=== PATIENT | female | born 1975 | race Caucasian/White ===

== ENCOUNTER 2019-09-05 00:26 | Day surgery (SDC) | payer OTHER, SELFPAY ==
[2019-08-30 13:09] VITALS: BMI 20.3
[2019-09-05] MEDS: LACTATED RINGERS 1,000 ML 150 ML IV CONT (10:20)
[2019-09-05 10:27] VITALS: BP 137/75; PULSE 73; RESP 16; TEMP 36.5; O2SAT 100
--- NOTE | 2019-09-05 11:20 | WPDANESEPPF ---
Anes - Initial Pre Proc Eval Procedure: Operation Date: 09/05/19 11:30 Proposed Procedures p Esophagogastroduodenoscopy - Rubén Catalan MD Date/Time: 09/05/19 11:20 Surgeon: Rubén Catalan MD Pre Op Diagnosis: Dysphagia Patient Data Age: 44 Gender: F Height: 5 ft 7 in Weight: 59 kg Last Vital Signs Temp 97.7 F 09/05/19 10:27 Pulse 73 09/05/19 10:27 Resp 16 09/05/19 10:27 BP 137/75 09/05/19 10:27 Pulse Ox 100 09/05/19 10:27 Allergies Allergy/AdvReac Type Severity Reaction Status Date / Time No Known Allergies Allergy Verified 09/05/19 10:14 Home Medications Medication Instructions Recorded Confirmed Type albuterol sulfate 90 mcg/actuation 1 inhalation INHALATION Q4H PRN 05/22/19 08/30/19 Rx aerosol inhaler #6.7 gm albuterol sulfate 2.5 mg INHALATION Q4-6H PRN #90 ml 05/29/19 08/30/19 Rx omeprazole 40 mg capsule,delayed 40 mg PO DAILY #30 cap 08/13/19 08/30/19 Rx release Patient hx anesthesia problems: none Family hx anesthesia problems: none PMFSH Past Medical History Medical History (Updated 08/13/19 @ 10:50 by rBisa Erazo, [facility]) Essential hypertension Migraine, unspecified, not intractable, with status migrainosus Pneumonia of left lower lobe due to infectious organism Unspecified asthma with (acute) exacerbation Social History Social History Smoking status: Never smoker Alcohol intake: never Anes - Eval Final PreProcedure Day of Procedure 09/05/19 11:20 Patient weight: normal Heart: regular rate and rhythm Lungs: clear to auscultation Airway: Mallampati scale class II Neurological: alert and oriented Last oral intake: >/= 8 hours ASA classification: II Emergent: no Anesthetic plan: proceed Anesthesia type and monitoring: general GIVS and standard monitoring Informed Consent: The patient's anesthetic plan and its attendant risks and benefits were discussed with the patient/family/POA. Questions were solicited and answers provided to the satisfaction of the patient/family/POA.
--- NOTE | 2019-09-05 11:32 | PM.HPGS ---
History of Present Illness History of Present Illness Consent: Risks, benefits, and alternatives have been discussed and questions answered. Patient agrees to proceed with procedure. Chief complaint: Dysphagia Narrative: Demetrio Hua is a 44 year old female who has been having frequent episodes of dysphagia. Solid foods such as meat, sandwiches or rice seem to get caught. When it happens even water will go down. He has had problems with acid reflux and just began taking omeprazole a couple weeks ago. She has had heartburn from time to time and at times she will feel it come up to her throat PMFSH Past Medical History Medical History Essential hypertension Migraine, unspecified, not intractable, with status migrainosus Pneumonia of left lower lobe due to infectious organism Unspecified asthma with (acute) exacerbation Family History Family History Grandparent Hypertension Father Hypertension Social History Social History Smoking status: Never smoker Alcohol intake: never Meds Home Medications and Allergies Home Medications Medication Instructions Recorded Confirmed Type albuterol sulfate 90 mcg/actuation 1 inhalation INHALATION Q4H PRN 05/22/19 08/30/19 Rx aerosol inhaler #6.7 gm albuterol sulfate 2.5 mg INHALATION Q4-6H PRN #90 ml 05/29/19 08/30/19 Rx omeprazole 40 mg capsule,delayed 40 mg PO DAILY #30 cap 08/13/19 08/30/19 Rx release Allergies Allergy/AdvReac Type Severity Reaction Status Date / Time No Known Allergies Allergy Verified 09/05/19 10:14 Vital Signs Vital Signs - 24 hr 09/05/19 10:27 Temperature 36.5 C Pulse Rate 73 Respiratory Rate 16 Blood Pressure 137/75 Pulse Oximetry 100 Exam Const: General: alert Orientation/consciousness: patient oriented x3 Resp: Auscultation: clear to auscultation bilaterally Cardio: Rhythm: regular rhythm GI: GI Palp: Yes Soft to palpation and No Tenderness to palpation present (GI) Neuro: General: patient oriented x3 Assessment and Plan Assessment and plan (1) Dysphagia: Qualifiers: Dysphagia type: esophageal phase Qualified Code(s): R13.10 - Dysphagia, unspecified Code(s): R13.10 - Dysphagia, unspecified Status: Acute Assessment and Plan: EGD with possible biopsy or dilatation or cautery.
[2019-09-05 11:56] VITALS: BP 110/66; PULSE 72; RESP 19; O2SAT 100
[2019-09-05 12:06] VITALS: BP 122/80; PULSE 71; RESP 20; O2SAT 100
[2019-09-05 12:16] VITALS: BP 138/92; PULSE 64; RESP 19; O2SAT 100
== END 2019-09-05 12:30 | disposition home or self-care (01) ==
PROVIDERS: PCP Family Medicine; Visit Provider Internal Medicine Gastroenterology
PROC: 0DJ08ZZ Inspection of Upper Intestinal Tract, Via Natural or Artificial Opening Endoscopic (ICD-10-PCS; CPT 43235; principal; 2019-09-05 11:30)
DX: K22.2 Esophageal obstruction (principal); K21.0 Gastro-esophageal reflux disease with esophagitis; I10 Essential (primary) hypertension; J45.909 Unspecified asthma, uncomplicated
CPT/HCPCS: 43249; 88305; C1726; J2704; J7120

== ENCOUNTER 2022-11-26 06:57 | Outpatient (CLI) | payer BC, SELFPAY ==
[2022-11-26 07:18] LABS: Hematocrit 43.2 % (37.0-47.0); Hemoglobin 14.6 g/dL (12.0-15.0); Mean Corpuscular HGB Conc 33.8 g/dl (32-36); Mean Corpuscular Hemoglobin 30.5 pg (26-34); Mean Corpuscular Volume 90.4 fl (80-100); Mean Platelet Volume 10.8 fl (7.4-10.4); Platelet Count Result 265 k/mm3 (150-375); Red Blood Count 4.78 M/mm3 (4.2-5.4); Red Cell Distribution Width 11.9 % (11.5-14.5)
[2022-11-26 07:29] LABS: Alanine Aminotransferase 15 U/L (6-35); Albumin Level 4.2 g/dL (3.5-5.1); Alkaline Phosphatase 51 U/L (38-126); Anion Gap 3 mmol/L (8-16); Aspartate Amino Transferase 19 U/L (14-36); Bilirubin,Total 1.1 mg/dL (0.2-1.3); Blood Urea Nitrogen 10 mg/dL (7-17); Calcium 9.1 mg/dL (8.4-10.2); Carbon Dioxide 31 mmol/L (22-30); Chloride 104 mmol/L (98-107); Cholesterol 188 mg/dL (0-200); Estimated Glomerular Filt Rate > 60; Glucose 105 mg/dL (65-110); HDL Direct 42 mg/dL; Potassium 4.6 mmol/L (3.4-5.0); Sodium 138 mmol/L (137-145); Triglycerides 114 mg/dL (<150)
[2022-11-26 07:40] LABS: LDL Cholesterol Direct 124 mg/dL
[2022-11-26 08:07] LABS: Erythrocyte Sedimentation Rate 9 mm/hr (0-20)
[2022-12-01 20:54] LABS: ANA Cascade Screen Negative (Negative)
== END 2022-11-26 06:58 | disposition home or self-care (01) ==
LOC: ANHLAB 06:58
PROVIDERS: PCP Family Medicine; Visit Provider Nurse Practitioner Family
DX: Z13.220 Encounter for screening for lipoid disorders (principal); Z83.2 Family history of diseases of the blood and blood-forming organs and certain disorders involving the immune mechanism; Z13.29 Encounter for screening for other suspected endocrine disorder; Z13.1 Encounter for screening for diabetes mellitus
CPT/HCPCS: 36415; 80053; 80061; 84443; 85027; 85652; 86038

== ENCOUNTER 2023-03-09 14:10 | Outpatient (CLI) | payer BC, SELFPAY ==
--- NOTE | ~2023-03-09 | XR_ITS ---
Clinical Indication: Shortness of breath PA and lateral views of the chest: Comparison: 07/29/2017 Findings: The lungs are clear, without evidence of focal consolidation or pleural effusion. Cardiome diastinal silhouette is within normal limits. Bones and soft tissues are unremarkable. Impression: Normal chest. Reviewed, dictated and finalized at [facility]. Impression: Normal chest.
[2023-03-09 14:58] LABS: Basophils Absolute Auto 0.1 K/mm3 (0.0-0.1); Basophils Percent Auto 0.5 % (0.2-1.2); Eosinophils Absolute Auto 0.7 K/mm3 (0-0.3); Eosinophils Percent Auto 6.1 % (0-4.4); Hematocrit 44.2 % (37.0-47.0); Hemoglobin 14.7 g/dL (12.0-15.0); Immature Granulocyte Absolute 0.03 K/mm3 (0.00-0.031); Immature Granulocyte Percent A 0.3 % (0-0.5); Lymphocytes Absolute Auto 3.34 K/mm3 (0.9-3.2); Mean Corpuscular HGB Conc 33.3 g/dl (32-36); Mean Corpuscular Hemoglobin 30.5 pg (26-34); Mean Corpuscular Volume 91.7 fl (80-100); Mean Platelet Volume 10.9 fl (7.4-10.4); Monocytes Absolute Auto 0.7 K/mm3 (0.1-0.6); Monocytes Percent Auto 6.2 % (2.6-8.5); Neutrophils Percent Auto 58.9 % (45.5-73.1); Platelet Count Result 292 k/mm3 (150-375); Red Blood Count 4.82 M/mm3 (4.2-5.4); Red Cell Distribution Width 12.1 % (11.5-14.5); White Blood Count 11.9 K/mm3 (4.5-10.0)
[2023-03-09 15:16] LABS: Anion Gap 9 mmol/L (8-16); Blood Urea Nitrogen 8 mg/dL (7-17); Calcium 8.9 mg/dL (8.4-10.2); Carbon Dioxide 26 mmol/L (22-30); Chloride 103 mmol/L (98-107); Estimated Glomerular Filt Rate > 60; Glucose 115 mg/dL (65-110); Potassium 4.2 mmol/L (3.4-5.0); Sodium 138 mmol/L (137-145)
== END 2023-03-09 14:11 | disposition home or self-care (01) ==
LOC: ANHLAB 14:12
PROVIDERS: PCP Family Medicine; Visit Provider Nurse Practitioner Family
DX: T63.511A Toxic effect of contact with stingray, accidental (unintentional), initial encounter (principal); L97.512 Non-pressure chronic ulcer of other part of right foot with fat layer exposed; R06.02 Shortness of breath
CPT/HCPCS: 36415; 71046; 80048; 85025

== ENCOUNTER 2023-03-10 08:40 | Outpatient (RCR) | payer BC, SELFPAY ==
[2023-03-10 09:28] VITALS: BMI 22.7
== END 2023-04-07 13:44 | disposition home or self-care (01) ==
LOC: ANHWOC 08:40
PROVIDERS: PCP Family Medicine; Visit Provider Family Medicine
DX: L97.512 Non-pressure chronic ulcer of other part of right foot with fat layer exposed (principal)
CPT/HCPCS: 99213; G0463

== ENCOUNTER → 2023-03-12 07:41 | Outpatient (CLI) | payer BC, SELFPAY ==
--- NOTE | ~2023-03-12 | MM_ITS ---
EXAMINATION: MM screening natalie BI w new HISTORY: Screening mammogram TECHNIQUE: Craniocaudal and mediolateral oblique 3-D tomosynthesis images were obtained and synthetic 2-D images were generated. CAD analysis was submitted and interpreted. COMPARISON: No prior mammogram is available for comparison at this institution. BREAST PARENCHYMAL COMPOSITION: The breasts are heterogeneously dense, which may obscure small masses . FINDINGS: There is no evidence of suspicious mass, calcification, or architectural distortion to sugg est malignancy in either breast. IMPRESSION: 1. No mammographic evidence of malignancy. 2. Recommend routine screening mammography in one year. BI-RADS Category 1: Negative Reviewed, dictated and finalized at location A.
== END ==
PROVIDERS: PCP Family Medicine; Visit Provider Nurse Practitioner Family
DX: Z12.31 Encounter for screening mammogram for malignant neoplasm of breast (principal)
CPT/HCPCS: 77063; 77067

== ENCOUNTER 2023-03-14 07:10 | Outpatient (CLI) | payer BC, SELFPAY | END 2023-03-14 07:11 | disposition home or self-care (01) | PROVIDERS: PCP Family Medicine; Visit Provider Nurse Practitioner Family | DX: T63.511A Toxic effect of contact with stingray, accidental (unintentional), initial encounter (principal) | CPT/HCPCS: 87040 ==

== ENCOUNTER 2023-03-16 10:27 | Outpatient (CLI) | payer BC, SELFPAY ==
--- NOTE | ~2023-03-16 | MR_ITS ---
EXAMINATION: MR foot RT wo/w con DATE: 03/16/2023 11:17 INDICATION: Right foot pain and swelling. Stung by stingray. TECHNIQUE: Magnetic resonance imaging (MRI) of the right foot was performed without and with 13 mL Mu ltiHance intravenous contrast. COMPARISON: None FINDINGS: Bone alignment is normal. No fracture. 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 Lisfranc ligament is normal. There are longitudinal split fractures of radius brevis and peroneu s longus tendons. The plantar fascia is normal. There is a skin marker plantar to the midfoot. There is edema in flexor digitorum brevis and quadratus plantae muscles. There is subcutaneous edema planta r to head of fifth metatarsal. IMPRESSION: 1. Edema in the plantar musculature of the foot (flexor digitorum brevis and quadratus plantae muscle s), consistent with myositis. No abscess. Reviewed, dictated and finalized at location A. IMPRESSION: 1. Edema in the plantar musculature of the foot (flexor digitorum brevis and qu adratus plantae muscles), consistent with myositis. No abscess.
== END 2023-03-16 10:28 ==
PROVIDERS: PCP Family Medicine; Visit Provider Podiatrist Foot & Ankle Surgery
DX: M79.89 Other specified soft tissue disorders (principal)
CPT/HCPCS: 73720; A9577

== ENCOUNTER 2024-04-21 07:28 | Outpatient (CLI) | payer BC, SELFPAY ==
[2024-04-21 08:28] LABS: Basophils Absolute Auto 0.1 K/mm3 (0.0-0.1); Basophils Percent Auto 0.9 % (0.2-1.2); Eosinophils Absolute Auto 0.8 K/mm3 (0-0.3); Hematocrit 43.9 % (37.0-47.0); Hemoglobin 14.7 g/dL (12.0-15.0); Immature Granulocyte Absolute 0.02 K/mm3 (0.00-0.031); Immature Granulocyte Percent A 0.2 % (0-0.5); Lymphocytes Absolute Auto 2.62 K/mm3 (0.9-3.2); Lymphocytes Percent Auto 28.1 % (18.3-44.2); Mean Corpuscular HGB Conc 33.5 g/dl (32-36); Mean Corpuscular Hemoglobin 30.5 pg (26-34); Mean Corpuscular Volume 91.1 fl (80-100); Mean Platelet Volume 11.1 fl (7.4-10.4); Monocytes Absolute Auto 0.5 K/mm3 (0.1-0.6); Monocytes Percent Auto 5.7 % (2.6-8.5); Neutrophils Absolute Auto 5.3 K/mm3 (1.3-6.7); Neutrophils Percent Auto 57.1 % (45.5-73.1); Platelet Count Result 302 k/mm3 (150-375); Red Blood Count 4.82 M/mm3 (4.2-5.4); Red Cell Distribution Width 11.4 % (11.5-14.5); White Blood Count 9.3 K/mm3 (4.5-10.0)
[2024-04-21 08:38] LABS: Alanine Aminotransferase 12 U/L (6-35); Albumin Level 3.9 g/dL (3.5-5.1); Alkaline Phosphatase 62 U/L (38-126); Anion Gap 2 mmol/L (4-12); Aspartate Amino Transferase 19 U/L (14-36); Bilirubin,Total 0.5 mg/dL (0.2-1.3); Blood Urea Nitrogen 10 mg/dL (7-17); Carbon Dioxide 31 mmol/L (22-30); Chloride 104 mmol/L (98-107); Cholesterol 177 mg/dL (0-200); Estimated Glomerular Filt Rate > 60; Glucose 93 mg/dL (65-110); HDL Direct 41 mg/dL; Potassium 4.5 mmol/L (3.4-5.0); Sodium 137 mmol/L (137-145); Triglycerides 208 mg/dL (<150)
[2024-04-21 08:48] LABS: LDL Cholesterol Direct 93 mg/dL
== END 2024-04-21 07:29 | disposition home or self-care (01) ==
LOC: ANHLAB 07:30
PROVIDERS: PCP Family Medicine; Visit Provider Nurse Practitioner Adult Health
DX: Z00.00 Encounter for general adult medical examination without abnormal findings (principal); I10 Essential (primary) hypertension; Z13.220 Encounter for screening for lipoid disorders; Z13.29 Encounter for screening for other suspected endocrine disorder
CPT/HCPCS: 36415; 80053; 80061; 84443; 85025

== ENCOUNTER 2024-06-11 10:43 | Outpatient (CLI) | payer BC, SELFPAY ==
--- NOTE | ~2024-06-11 | MM_ITS ---
EXAMINATION: MM screening natalie BI w new HISTORY: Screening TECHNIQUE: Craniocaudal and mediolateral oblique 3-D tomosynthesis images were obtained and synthetic 2-D images were generated. CAD analysis was submitted and interpreted. COMPARISON: 03/12/2023 BREAST PARENCHYMAL COMPOSITION: Dense: The breasts are heterogeneously dense, which may obscure small masses FINDINGS: There is no evidence of suspicious mass, calcification, or architectural distortion to sugg est malignancy in either breast. There has been no suspicious interval change. IMPRESSION: 1. No mammographic evidence of malignancy. 2. Recommend routine screening mammography in one year. BI-RADS Category 1: Negative Reviewed, dictated and finalized at location B. S MANAGER
== END 2024-06-11 10:44 | disposition home or self-care (01) ==
LOC: MICIMG 10:44
PROVIDERS: PCP Obstetrics & Gynecology Gynecology; Visit Provider Obstetrics & Gynecology Gynecology
DX: Z12.31 Encounter for screening mammogram for malignant neoplasm of breast (principal)
CPT/HCPCS: 77063; 77067

== ENCOUNTER 2024-10-23 16:33 | Outpatient (CLI) | payer OTHER, SELFPAY ==
[2024-10-23 16:54] LABS: Basophils Absolute Auto 0.1 K/mm3 (0.0-0.1); Basophils Percent Auto 0.6 % (0.2-1.2); Eosinophils Absolute Auto 0.8 K/mm3 (0-0.3); Eosinophils Percent Auto 6.2 % (0-4.4); Hematocrit 42.2 % (37.0-47.0); Immature Granulocyte Absolute 0.03 K/mm3 (0.00-0.031); Immature Granulocyte Percent A 0.2 % (0-0.5); Lymphocytes Absolute Auto 3.88 K/mm3 (0.9-3.2); Mean Corpuscular HGB Conc 33.2 g/dl (32-36); Mean Corpuscular Hemoglobin 29.5 pg (26-34); Mean Corpuscular Volume 88.8 fl (80-100); Monocytes Absolute Auto 0.7 K/mm3 (0.1-0.6); Monocytes Percent Auto 5.4 % (2.6-8.5); Neutrophils Absolute Auto 7.1 K/mm3 (1.3-6.7); Neutrophils Percent Auto 56.6 % (45.5-73.1); Platelet Count Result 311 k/mm3 (150-375); Red Blood Count 4.75 M/mm3 (4.2-5.4); Red Cell Distribution Width 11.6 % (11.5-14.5); White Blood Count 12.5 K/mm3 (4.5-10.0)
[2024-10-23 17:07] LABS: Alanine Aminotransferase 13 U/L (6-35); Albumin Level 4.3 g/dL (3.5-5.1); Alkaline Phosphatase 50 U/L (38-126); Anion Gap 13 mmol/L (4-12); Aspartate Amino Transferase 17 U/L (14-36); Bilirubin,Total 0.3 mg/dL (0.2-1.3); Blood Urea Nitrogen 12 mg/dL (7-17); Carbon Dioxide 23 mmol/L (22-30); Chloride 102 mmol/L (98-107); Estimated Glomerular Filt Rate > 60; Glucose 119 mg/dL (65-110); Potassium 3.8 mmol/L (3.4-5.0); Sodium 138 mmol/L (137-145)
[2024-10-23 17:25] LABS: Vitamin D 25 Hydroxy 49.3 ng/mL
[2024-10-24 19:18] LABS: FSH 3.1 mIU/mL
[2024-10-25 05:08] LABS: Insulin Level Total 41.1 uIU/mL
[2024-10-27 00:29] LABS: Testosterone Total 24 ng/dL (2-45)
== END 2024-10-23 16:34 | disposition home or self-care (01) ==
LOC: ANHLAB 16:37
PROVIDERS: PCP Family Medicine; Visit Provider Nurse Practitioner Family
DX: Z00.00 Encounter for general adult medical examination without abnormal findings (principal); R23.2 Flushing; F41.1 Generalized anxiety disorder; F43.0 Acute stress reaction; I10 Essential (primary) hypertension
CPT/HCPCS: 36415; 80053; 82306; 82672; 83001; 83002; 83525; 84403; 84443; 85025

== ENCOUNTER 2024-10-24 12:57 | Emergency (ER) | payer OTHER, SELFPAY ==
--- NOTE | ~2024-10-24 | XR_ITS ---
EXAMINATION: XR chest 2V DATE: 10/24/2024 15:36 INDICATION: Chest pain, right arm pain and hypertension TECHNIQUE: PA and lateral views of the chest were obtained. COMPARISON: Chest radiograph dated 03/09/23 FINDINGS: Mild biapical pleural-parenchymal scarring. No other airspace opacities, pulmonary edema, pleural eff usion or pneumothorax. The cardiomediastinal silhouette is normal. Visualized bones and soft tissues are unremarkable. IMPRESSION: 1. No acute cardiopulmonary disease. Reviewed, dictated and finalized at location A.
[2024-10-24 13:31] VITALS: BP 153/86; PULSE 104; RESP 16; TEMP 37; O2SAT 98
[2024-10-24 14:17] VITALS: RESP 14; O2SAT 99
--- OUTSIDE RECORDS SUMMARY | 2024-10-24 14:27 | XMS_ITS | Clinical Summary ---
Author Organization [facility] Address [address] [place] [address] Care Team Providers Care Manager Talent Acquisition Name Role Phone Unavailable Primary Care Provider Unavailabl e Social History Tobacco Use Types Packs/Day Years Used Date Smoking Tobacco: Never Assessed Comments Unknown Sex and Gender Information Value Date Recorded Sex Assigned at Not on file Legal Sex Female 5:31 PM CDT Gender Identity Not on file Sexual Orientation Not on file Last Filed Vital Signs Vital Sign Reading Time Taken Comments Blood Pressure 110/68 07/15/2012 1:16 PM GLOBAL SALES EXECUTIVE Pulse 88 07/15/2012 1:16 PM GLOBAL SALES EXECUTIVE Temperature - - Respiratory Rate - - Oxygen Saturation - - Inhaled Oxygen Concentration - - Weight 54.4 kg (120 lb) 07/15/2012 1:16 PM GLOBAL SALES EXECUTIVE Height - - Body Mass Index - - Plan of Treatment Health Maintenance Due Date Last Done Comments Cervical Cancer Screening Pa p Smear (Age 30 to 64) Every 3 Years 1977 Colorectal Cancer Screening Colonoscopy (10 Years) 1977 Annual Physical 1980 Hepatitis C 1995 Hepatitis B Vaccines (1 of 3 - 19+ 3-dose series) 1996 Cervical Cancer Screening Pa p with HPV Testing (Age 30 to 64) Every 5 Years 2007 Cervical Cancer Screening with HPV 2007 Mammogram Screening 2017 DTaP, Tdap and Td Vaccines ( 2 - Td or Tdap) 07/15/2022 07/15/2012 COVID-19 Vaccine (2023-2 5 season) 2024 Meningococcal B Vaccine Aged Out No l onger eligible based on patient's age to complete this topic Meningococcal Vaccine Aged Out No louann cricket eligible based on patient's age to complete this topic Pneumococcal Vaccine: Pediat rics (0 to 5 Years) and At-Risk Patients (6 to 49 Years) Aged Out No longer eligi ble based on patient's age to complete this topic RSV Immunizations Under 20 Months Aged Out No longer eligible based on patient's age to complete this topic
--- OUTSIDE RECORDS SUMMARY | 2024-10-24 14:27 | XMS_ITS | Encounter Summary ---
Author Organization [facility] Address [address] [place] [address] Care Team Providers Care Cooler Servicer Name Role Phone Unavailable Primary Care Provider Unavailabl e Encounter Details Date Type Department Care Team (Late st Contact Info) Description 12/09/2018 Abstract [facility] CONVERSION [id number] [place], [place] [id number] , Generic Conversion, Social History Tobacco Use Types Packs/Day Years Used Date Smoking Tobacco: Never Assessed Comments Unknown Sex and Gender Information Value Date Recorded Sex Assigned at Not on file Legal Sex Female 5:31 PM CDT Gender Identity Not on file Sexual Orientation Not on file documented as of this encounter Plan of Treatment Not on file documented as of this encounter Visit Diagnoses Not on filedocumented in this encounter
--- NOTE | 2024-10-24 15:07 | ECG_ITS ---
Test Date: 2024-10-24 15:19:07 Measurements Intervals [place] Rate: 89 P: 11 [place]: 97 QRS: 33 QRSD: 81 T: 44 QT: 377 QTc: 459 Interpretive Statements SINUS RHYTHM WITH SHORT [place] INTERVAL BORDERLINE ECG No previous ECG available for comparison Electronically Signed On 10-24-2024 15:38:32 CDT by Azeem Schaeffer D.O.
[2024-10-24 15:13] VITALS: BP 135/77; PULSE 83; RESP 17; O2SAT 97
--- NOTE | 2024-10-24 15:21 | ED.RECABL ---
HPI - Recheck/Abnormal Lab/Rx General Chief Complaint: Recheck/Abnormal Lab/Rx Stated Complaint: cardiac work up Time Seen by Provider: 10/24/24 14:20 Source: patient Mode of arrival: ambulatory Limitations: no limitations History of Present Illness HPI narrative: This is a 49-year-old female that presents to the emergency department for elevated blood pressure. Reports she has been having elevated blood pressure readings, chest discomfort, shoulder pain. She was seen by her PCP for this yesterday. Restarted on her blood pressure medication. She is found to be seen in the ER today for further evaluation of her heart. Denies fever, cough, shortness of breath, lower extremity edema. Related Data Home Medications ?Medication ?Instructions ?Recorded ?Confirmed ?Last Taken ?Type norelgestromin 150 mcg-e.estradiol patch topical WEEKLY 10/13/23 10/23/24 Unknown History 35 mcg/24 hr weekly transderm patch (Xulane) Allergies Allergy/AdvReac Type Severity Reaction Status Date / Time clindamycin AdvReac Severe Diarrhea Verified 10/24/24 13:00 Review of Systems Review of Systems: CONSTITUTIONAL: Denies fever CARDIOVASCULAR: Reports chest pain. Denies palpitations, or edema. RESPIRATORY: Denies cough or dyspnea. All systems reviewed & are unremarkable except as noted in HPI and below PMFSH Past Medical History Medical History Screening for thyroid disorder Ulcer of foot Toxic effect of stingray venom Screen for colon cancer Screening for thyroid disorder Screening for diabetes mellitus Family history of autoimmune disorder Family history of lupus Essential hypertension Migraine, unspecified, not intractable, with status migrainosus Pneumonia of left lower lobe due to infectious organism Unspecified asthma with (acute) exacerbation Family History Family History Grandparent Hypertension Father Hypertension Acute myocardial infarction Heart disease Mother Hyperlipidemia Hypertension Sibling Hypertension Social History Social History Smoking status: Former smoker Second hand tobacco smoke exposure: No Alcohol intake: current Substance use: never Substance use type: does not use Do You Feel Safe in your Home?: Yes Lack of Transportation: No Lack of Food: Never True Current Housing: I Have Housing Concerned About Future Housing: No Difficulty Paying Gas/Electric Bills: No Difficulty Paying for Meds: No Currently Unemployed: No Education: Associate Degree Difficulty w/ Childcare or Family Care: No Living arrangements: with family Occupation/Education: occupation 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 Gender identity (if verbalized by the patient): Female Exam Narrative: GENERAL: Well-appearing, well-nourished, and in no acute distress. HEAD: Normocephalic, atraumatic. EYES: EOMI. ENT: Nares clear, no rhinorrhea or epistaxis. Mucous membranes moist. Oropharynx without tonsillar hypertrophy exudate or other lesions. CHEST: Clear to auscultation. No respiratory distress. No wheezes rales or rhonchi HEART: Regular rate and rhythm. No murmur heard. Normal peripheral pulses. EXTREMITIES: Normal range of motion. No edema. SKIN: Warm, dry, no rash. NEURO: No focal deficits. Alert and oriented x3. PSYCH: Normal mood and affect Course Course Emergency Course: Patient updated on her workup and agrees with plan of care Vital Signs Vital signs: Vital Signs Temperature 98.6 F 10/24/24 13:31 Pulse Rate 104 H 10/24/24 13:31 Respiratory Rate 16 10/24/24 13:31 Blood Pressure 153/86 H 10/24/24 13:31 Pulse Oximetry 98 10/24/24 13:31 Temperature 98.6 F 10/24/24 13:31 Pulse Rate 82 10/24/24 17:33 Respiratory Rate 18 10/24/24 17:33 Blood Pressure 130/70 10/24/24 17:33 Pulse Oximetry 99 10/24/24 17:33 MDM - Recheck/Abnormal Lab/Rx MDM Narrative Medical decision making narrative: Patient presents the emergency department with elevated blood pressures, chest/shoulder discomfort. Tachycardic and hypertensive upon arrival, this normalized without intervention. CBC with leukocytosis to 14.1. Patient is afebrile without any localizing infectious symptoms. Metabolic panel without concerning findings. EKG without concerning changes and baseline troponin is negative. Chest x-ray without acute cardiopulmonary abnormality. D-dimer is not elevated. Patient updated on her workup and agrees with plan of care. Instructed to have continued follow-up with her primary provider. She was given warnings to return to the ER Differential Diagnosis Differential diagnosis: Likely other (Hypertension, chest pain, costochondritis, muscle spasm, muscle strain, pneumonia, PE) Lab Data Attestation: I reviewed the patient's lab results. 10/24/24 15:45 10/24/24 15:45 Labs: Lab Results 10/24/24 10/24/24 10/24/24 Range/Units 15:44 15:44 15:44 WBC (4.5-10.0) K/mm3 RBC (4.2-5.4) M/mm3 Hgb (12.0-15.0) g/dL Hct (37.0-47.0) % MCV (80-100) fl MCH (26-34) pg MCHC (32-36) g/dl RDW (11.5-14.5) % Plt Count (150-375) k/mm3 MPV (7.4-10.4) fl Immature Gran % (Auto) (0-0.5) % Neut % (Auto) (45.5-73.1) % Lymph % (Auto) (18.3-44.2) % [place] % (Auto) (2.6-8.5) % Eos % (Auto) (0-4.4) % Baso % (Auto) (0.2-1.2) % Lymph # (Auto) (0.9-3.2) K/mm3 [place] # (Auto) (0.1-0.6) K/mm3 Eos # (Auto) (0-0.3) K/mm3 Baso # (Auto) (0.0-0.1) K/mm3 Abs Immat Gran (auto) (0.00-0.031) K/mm3 Absolute Neuts (auto) (1.3-6.7) K/mm3 Absolute Nucleated RBC (0.0-0.012) K/mm3 Nucleated RBC % (0.0-0.2) % PT Cancelled 12.8 INR Cancelled 0.9 APTT Cancelled D-Dimer (<0.48) ug/mL Sodium (137-145) mmol/L Potassium (3.4-5.0) mmol/L Chloride (98-107) mmol/L Carbon Dioxide (22-30) mmol/L Anion Gap (4-12) mmol/L BUN (7-17) mg/dL Creatinine (0.7-1.0) mg/dL Estim Creat Clear Calc ml/min Estimated GFR (59 - ) Glucose (65-110) mg/dL Calcium (8.4-10.2) mg/dL Total Bilirubin (0.2-1.3) mg/dL AST (14-36) U/L ALT (6-35) U/L Alkaline Phosphatase (38-126) U/L Troponin I (0.000-0.034) ng/mL Total Protein (6.3-8.2) g/dL Albumin (3.5-5.1) g/dL Lipase (23-300) U/L 10/24/24 10/24/24 Range/Units 15:44 15:45 WBC 14.1 H (4.5-10.0) K/mm3 RBC 4.71 (4.2-5.4) M/mm3 Hgb 14.1 (12.0-15.0) g/dL Hct 42.5 (37.0-47.0) % MCV 90.2 (80-100) fl MCH 29.9 (26-34) pg MCHC 33.2 (32-36) g/dl RDW 11.6 (11.5-14.5) % Plt Count 295 (150-375) k/mm3 MPV 10.9 H (7.4-10.4) fl Immature Gran % (Auto) 0.3 (0-0.5) % Neut % (Auto) 74.0 H (45.5-73.1) % Lymph % (Auto) 19.1 (18.3-44.2) % [place] % (Auto) 4.0 (2.6-8.5) % Eos % (Auto) 2.2 (0-4.4) % Baso % (Auto) 0.4 (0.2-1.2) % Lymph # (Auto) 2.70 (0.9-3.2) K/mm3 [place] # (Auto) 0.6 (0.1-0.6) K/mm3 Eos # (Auto) 0.3 (0-0.3) K/mm3 Baso # (Auto) 0.1 (0.0-0.1) K/mm3 Abs Immat Gran (auto) 0.04 H (0.00-0.031) K/mm3 Absolute Neuts (auto) 10.4 H (1.3-6.7) K/mm3 Absolute Nucleated RBC 0.000 (0.0-0.012) K/mm3 Nucleated RBC % 0.0 (0.0-0.2) % PT INR APTT 27.2 D-Dimer 0.36 (<0.48) ug/mL Sodium 139 (137-145) mmol/L Potassium 3.9 (3.4-5.0) mmol/L Chloride 103 (98-107) mmol/L Carbon Dioxide 25 (22-30) mmol/L Anion Gap 11 (4-12) mmol/L BUN 8 (7-17) mg/dL Creatinine 0.69 L (0.7-1.0) mg/dL Estim Creat Clear Calc 84 ml/min Estimated GFR > 60 (59 - ) Glucose 102 (65-110) mg/dL Calcium 8.6 (8.4-10.2) mg/dL Total Bilirubin 0.6 (0.2-1.3) mg/dL AST 21 (14-36) U/L ALT 14 (6-35) U/L Alkaline Phosphatase 65 (38-126) U/L Troponin I < 0.012 (0.000-0.034) ng/mL Total Protein 8.0 (6.3-8.2) g/dL Albumin 4.3 (3.5-5.1) g/dL Lipase 73 (23-300) U/L Imaging Data Radiologist's impression: ITS Impressions Chest X-Ray 10/24/24 15:37 IMPRESSION: 1. No acute cardiopulmonary disease. ECG Data EKG #1: ECG completion date: 10/24/24 EKG Interpretation: normal rate, sinus rhythm, no ST changes and normal QT Critical Care Time Critical Care Time Critical Care Time: No Discharge Plan Discharge Clinical Impression: Hypertension Qualifiers: Hypertension type: unspecified Qualified Code(s): I10 - Essential (primary) hypertension Leukocytosis Qualifiers: Leukocytosis type: unspecified Qualified Code(s): D72.829 - Elevated white blood cell count, unspecified Patient Disposition: Home Condition: Stable Instructions: Hypertension (ED) Additional Instructions: Return to the emergency department if you experience fever, chest pain, shortness of breath, abdominal pain with nausea and vomiting, weakness, numbness, or any other symptoms that are concerning to you. Your blood work, EKG and imaging are largely reassuring today. Your white blood cell count is elevated, I do not have an explanation for this. This will need to be rechecked to make sure it is normalizing Follow up with your primary care doctor Patient Language: Czech Prescriptions: No Action olmesartan 20 mg tablet 20 mg PO DAILY Qty: 90 0RF albuterol sulfate 2.5 mg /3 mL (0.083 %) solution for nebulization 2.5 mg INHALATION Q4-6H PRN (Reason: shortness of breath or wheezing) Qty: 90 3RF omeprazole 40 mg capsule,delayed release(DR/EC) 40 mg PO DAILY Qty: 90 3RF norelgestromin-ethin.estradiol [Xulane] 150-35 mcg/24 hr patch weekly topical WEEKLY albuterol sulfate 90 mcg/actuation HFA aerosol inhaler 1 inh INHALATION Q4H PRN (Reason: shortness of breath or wheezing) Qty: 25.5 4RF Rx Instructions: 3 month suppley sertraline [Zoloft] 25 mg tablet 25 mg PO DAILY Qty: 90 0RF Follow-up/Referrals: Samuel Bonner MD [Primary Care Provider] - Quality HEART score for chest pain patients History: slightly suspicious ECG: normal Age: > 45 and < 65 years Risk factors: 1 or 2 risk factors Troponin: < or = to 1x normal limit Heart score: 2
[2024-10-24 15:51] LABS: Basophils Absolute Auto 0.1 K/mm3 (0.0-0.1); Basophils Percent Auto 0.4 % (0.2-1.2); Eosinophils Absolute Auto 0.3 K/mm3 (0-0.3); Eosinophils Percent Auto 2.2 % (0-4.4); Hematocrit 42.5 % (37.0-47.0); Hemoglobin 14.1 g/dL (12.0-15.0); Immature Granulocyte Absolute 0.04 K/mm3 (0.00-0.031); Immature Granulocyte Percent A 0.3 % (0-0.5); Lymphocytes Percent Auto 19.1 % (18.3-44.2); Mean Corpuscular HGB Conc 33.2 g/dl (32-36); Mean Corpuscular Hemoglobin 29.9 pg (26-34); Mean Corpuscular Volume 90.2 fl (80-100); Mean Platelet Volume 10.9 fl (7.4-10.4); Monocytes Absolute Auto 0.6 K/mm3 (0.1-0.6); Neutrophils Absolute Auto 10.4 K/mm3 (1.3-6.7); Platelet Count Result 295 k/mm3 (150-375); Red Blood Count 4.71 M/mm3 (4.2-5.4); Red Cell Distribution Width 11.6 % (11.5-14.5); White Blood Count 14.1 K/mm3 (4.5-10.0)
[2024-10-24 16:03] LABS: Alanine Aminotransferase 14 U/L (6-35); Albumin Level 4.3 g/dL (3.5-5.1); Alkaline Phosphatase 65 U/L (38-126); Anion Gap 11 mmol/L (4-12); Aspartate Amino Transferase 21 U/L (14-36); Bilirubin,Total 0.6 mg/dL (0.2-1.3); Blood Urea Nitrogen 8 mg/dL (7-17); Calcium 8.6 mg/dL (8.4-10.2); Carbon Dioxide 25 mmol/L (22-30); Chloride 103 mmol/L (98-107); Estimated CRCL calculation 84 ml/min; Estimated Glomerular Filt Rate > 60; Glucose 102 mg/dL (65-110); Lipase 73 U/L (23-300); Potassium 3.9 mmol/L (3.4-5.0); Sodium 139 mmol/L (137-145)
[2024-10-24 16:03] LABS: INR 0.9; Prothrombin Time 12.8 Seconds (11.1-14.7)
[2024-10-24 16:04] LABS: Partial Thromboplastin Time 27.2 Seconds (22.3-36.8)
[2024-10-24 16:09] LABS: D Dimer 0.36 ug/mL (<0.48)
[2024-10-24 16:15] LABS: Troponin I < 0.012 ng/mL (0.000-0.034)
[2024-10-24 16:20] VITALS: BP 136/72; PULSE 94; RESP 18; O2SAT 99
--- OUTSIDE RECORDS SUMMARY | 2024-10-24 16:41 | XMS_ITS | Encounter Summary ---
Author Organization [facility] Address [address] [place] [address] Care Team Providers Care Supervisor Assembly Name Role Phone Unavailable Primary Care Provider Unavailabl e Encounter Details Date Type Department Care Team (Late st Contact Info) Description 12/09/2018 Abstract [facility] CONVERSION [id number] [address] [place], [place] [id number] , Generic Conversion, Social History Tobacco Use [...]
--- OUTSIDE RECORDS SUMMARY | 2024-10-24 16:41 | XMS_ITS | Clinical Summary ---
Author Organization [facility] Address [address] [place] [address] Care Team Providers Care Display Mechanic Name Role Phone Unavailable Primary Care Provider [...] Comments Blood Pressure 110/68 07/15/2012 1:16 PM WELDER EXPERIMENTAL Pulse 88 07/15/2012 1:16 PM WELDER EXPERIMENTAL Temperature - - Respiratory Rate - - Oxygen Saturation - - Inhaled Oxygen Concentration - - Weight 54.4 kg (120 lb) 07/15/2012 1:16 PM WELDER EXPERIMENTAL Height - - Body Mass Index - [...]
[2024-10-24 17:33] VITALS: BP 130/70; PULSE 82; RESP 18; O2SAT 99
[2024-10-24 18:06] VITALS: BP 132/74; PULSE 83; RESP 18; O2SAT 98
== END 2024-10-24 18:14 | disposition home or self-care (01) ==
PROVIDERS: Emergency Provider Physician Assistant; PCP Family Medicine
DX: D72.829 Elevated white blood cell count, unspecified (principal); I10 Essential (primary) hypertension; J45.909 Unspecified asthma, uncomplicated
CPT/HCPCS: 36415; 71046; 80053; 83690; 84484; 85025; 85380; 85610; 85730; 93005; 99284

== ENCOUNTER 2024-11-13 15:05 | Outpatient (CLI) | payer OTHER, SELFPAY ==
--- OUTSIDE RECORDS SUMMARY | 2024-11-13 15:09 | XMS_ITS | Clinical Summary ---
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
[2024-11-13 16:01] LABS: Basophils Absolute Auto 0.1 K/mm3 (0.0-0.1); Basophils Percent Auto 0.5 % (0.2-1.2); Eosinophils Absolute Auto 0.3 K/mm3 (0-0.3); Hemoglobin 13.5 g/dL (12.0-15.0); Immature Granulocyte Absolute 0.03 K/mm3 (0.00-0.031); Immature Granulocyte Percent A 0.3 % (0-0.5); Lymphocytes Percent Auto 32.9 % (18.3-44.2); Mean Corpuscular HGB Conc 32.9 g/dl (32-36); Mean Corpuscular Hemoglobin 29.5 pg (26-34); Mean Corpuscular Volume 89.7 fl (80-100); Mean Platelet Volume 11.3 fl (7.4-10.4); Monocytes Absolute Auto 0.6 K/mm3 (0.1-0.6); Monocytes Percent Auto 5.2 % (2.6-8.5); Neutrophils Absolute Auto 6.5 K/mm3 (1.3-6.7); Neutrophils Percent Auto 58.1 % (45.5-73.1); Platelet Count Result 324 k/mm3 (150-375); Red Blood Count 4.57 M/mm3 (4.2-5.4); Red Cell Distribution Width 11.5 % (11.5-14.5); White Blood Count 11.3 K/mm3 (4.5-10.0)
== END 2024-11-13 15:06 | disposition home or self-care (01) ==
LOC: ANHLAB 15:06
PROVIDERS: PCP Family Medicine; Visit Provider Nurse Practitioner Family
DX: D72.829 Elevated white blood cell count, unspecified (principal)
CPT/HCPCS: 36415; 85025

== ENCOUNTER 2025-01-15 13:41 | Outpatient (CLI) | payer OTHER, SELFPAY ==
--- NOTE | ~2025-01-15 | CT_ITS ---
CT of the Abdomen and Pelvis: Indication: Hematuria Technique: 2.5 mm axial scans were obtained through the abdomen and pelvis prior to and following in travenous administration of 130 cc of Omnipaque 350. Dose reduction technique was used on this scan b y utilizing automated exposure control and iterative reconstruction technique. The dose-length produc t (DLP) was 1189.65 mGy-cm. Findings: Scans through the lung bases are unremarkable. The liver, spleen, pancreas, gallbladder, and adrenal glands are within normal limits. 2 mm nonobstru cting left renal stone present. 5 mm nonobstructing right renal stone present with additional punctat e right renal stones. No hydronephrosis on either side. No evidence of aortic aneurysm. No lymphaden opathy. No bowel obstruction or bowel wall thickening. There is no evidence to suggest acute appendicitis. Images through the pelvis were performed. Urinary bladder unremarkable. No pelvic mass evident. No as cites. Impression: Small bilateral nonobstructing renal stones, as above. Reviewed, dictated and finalized at location . Impression: Small bilateral nonobstructing renal stones, as above.
[2025-01-15 14:02] LABS: Estimated Glomerular Filt Rate > 60
== END 2025-01-15 13:42 | disposition home or self-care (01) ==
LOC: MICIMG 13:42
PROVIDERS: PCP Family Medicine; Visit Provider Nurse Practitioner Family
DX: N20.0 Calculus of kidney (principal)
CPT/HCPCS: 74178; Q9967

== ENCOUNTER 2025-05-16 08:46 | Outpatient (CLI) | payer OTHER, SELFPAY ==
--- NOTE | ~2025-05-16 | XR_ITS ---
EXAMINATION: XR abdomen/kub 1V, 05/16/2025 8:50 RADIO STATION ENGINEER HISTORY: kidney stone HX OF STONES COMPARISON: No comparisons available. Technique: 3 view. Findings: Bowel gas pattern unremarkable. No obstruction. Right kidney midpole renal calculus measures 3 mm. No acute osseous abnormality. Impression: 1. No acute abnormality. Reviewed, dictated and finalized at location P. O STATION ENGINEER Impression: 1. No acute abnormality.
== END 2025-05-16 08:47 | disposition home or self-care (01) ==
PROVIDERS: PCP Family Medicine; Visit Provider Physician Assistant
DX: N20.0 Calculus of kidney (principal)
CPT/HCPCS: 74018

== ENCOUNTER 2025-06-13 07:03 | Outpatient (CLI) | payer OTHER, SELFPAY ==
--- NOTE | ~2025-06-13 | MM_ITS ---
CORRECTED REPORT added addendum JMG 06/14/2025 This report was recreated on 06/14/2025. Original report was PHONE SURVEYOR ADDENDUM The BI-RADS code was submitted in error. It should be BI-RADS 1-negative. PHONE SURVEYOR EXAMINATION: MM screening natalie BI w new HISTORY: Screening. TECHNIQUE: Craniocaudal and mediolateral oblique 3-D tomosynthesis images were obtained and synthetic 2-D images were generated. CAD analysis was submitted and interpreted. COMPARISON: 2023 and 2022 BREAST PARENCHYMAL COMPOSITION: Dense: The breasts are heterogeneously dense FINDINGS: No suspicious masses are seen. There are no suspicious calcifications. No unexplained architectural distortion is seen. There are no skin or nipple abnormalities identified. There is no adenopathy seen on the images submitted. IMPRESSION: No mammographic evidence to suggest malignancy is seen. The patient may return to screening mammography as per ACR guidelines. BI-RADS 3 - Probably benign - short-term follow-up is recommended. Reviewed, dictated and finalized at location C. PHONE SURVEYOR
== END 2025-06-13 07:04 | disposition home or self-care (01) ==
LOC: MICIMG 07:04
PROVIDERS: PCP Family Medicine; Visit Provider Obstetrics & Gynecology Gynecology
DX: Z12.31 Encounter for screening mammogram for malignant neoplasm of breast (principal)
CPT/HCPCS: 77063; 77067